=== PATIENT | male | born 1965 | race Caucasian/White ===

== ENCOUNTER 2018-04-26 09:30 | Inpatient (IN) ==
--- NOTE | 2018-04-26 10:14 | ERNOTE ---
Abdominal HPI - Narrative Date of Service: 04/26/18 - General Chief Complaint: Abdominal Pain Time Seen by Provider: 04/26/18 10:14 Source: patient Exam Limitations: no limitations - Immun/Allergies/Home Medications Allergies/Adverse Reactions: Allergies No Known Allergies Allergy (Verified 04/26/18 09:47) Home Medications: HOME MEDICATIONS NK 04/26/18 [Last Taken Unknown] - Pain Score Pain Score #1 Pain Score: 8 Abdominal Pain Onset Location: RUQ, LUQ, epigastric Pain Radiation: no radiation - History of Present Illness Narrative: The patient is a 52 year old male who presents for upper abdominal pain which has been present for 2 days. There are associated symptoms of nausea with vomiting. The patient reports upper abdominal pain, 8/10. There are no alleviating factors. There are aggravating factors of activity. Previous treatments have included: none. The past medical history includes: ETOH abuse. The social history is positive for current tobacco and marijuana use, daily alcohol intake. The patient has had no ill contacts. Patient presents with concern for food poisoning due to possible consumption of raw chicken yesterday. Patient states he began having upper abdominal pain followed by multiple episodes of vomiting. Patient reports normal BM yesterday. Patient states he was unable to keep down fluids but last evening and today has been able to keep down clear liquids without recurrence of vomiting. Patient presents due to persistent pain. Timing: constant, getting worse Activities at Onset: none Associated Symptoms: Present: nausea, vomiting, loss of appetite. Absent: fever/chills Review of Systems - Review of Systems Constitutional: Present: fatigue. Absent: fever EYE: Present: no symptoms reported ENT: Present: no symptoms reported. Absent: ear pain, nasal drainage, sore throat Respiratory: Present: no symptoms reported. Absent: shortness of breath, cough Cardiology: Present: no symptoms reported. Absent: chest pain Gastrointestinal/Abdominal: Present: nausea, vomiting, abdominal pain, eating less, drinking less. Absent: diarrhea Genitourinary: Present: decreased urinary output. Absent: dysuria Musculoskeletal: Present: no symptoms reported. Absent: back pain Skin: Present: no symptoms reported. Absent: rash Neurological: Present: no symptoms reported Endocrine: Present: no symptoms reported Hematologic/Lymphatic: Present: no symptoms reported Psych: Present: no symptoms reported All Other Systems: All systems neg except as marked Medical History (Last Reviewed 04/26/18 @ 12:24 by CONCHITA Frias) No pertinent past medical history Family History: Family History (Last Reviewed 04/26/18 @ 12:24 by CONCHITA Frias) Brother Heart disease Father Heart disease Son Heart disease Social History: Preferred Language Persian Smoking Status Current every day smoker Have you smoked in the past 12 Yes months Alcohol Use heavy Drug Use none No Social History Section defined Physical Exam - Physical Exam General Appearance: Present: wd/wn, alert, moderate distress Head Exam: Present: normal inspection Eye Exam: Normal inspection: bilateral Ears, Nose, Throat: Present: normal ENT inspection, normal pharynx Neck: Present: normal inspection, nontender Respiratory: Present: no respiratory distress, normal breath sounds, no accessory muscle use, lungs clear Cardiovascular/Chest: Present: regular rate, rhythm, no murmur Gastrointestinal/Abdominal: Present: tenderness - RUQ, LUQ, epigastric moderate, abnormal bowel sounds - hyperactive throughout, guarding, hepatomegaly. Absent: distended, mass Neurological Exam: Present: alert, oriented, normal mood/affect Skin Exam: Present: normal color, warm/dry Progress - Date and Time Seen: Date and Time: 04/26/18 12:[address] abd/pelvis due to elevated enzymes with elevated WBC. 04/26/18 14:55 Discussed case to . Referred patient to for admission. Discussed case with , will admit for acute pancreatitis, hyponatremia, intractable abdominal pain and ETOH abuse. Patient states pain after medication improved to 4/10. Discussed CT results with . 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 - Results and Orders Patient's Lab Results:: I have reviewed the patient's lab results. - Vital Signs Patient's Vital Signs:: I have reviewed the patient's vital signs. Vital Signs: Vital Signs 04/26/18 09:44 Temperature 36.7 C Pulse Rate 89 Respiratory Rate 16 Blood Pressure 157/104 H O2 Sat by Pulse Oximetry 100 - X-Ray X-Ray #1 X-Ray: abdomen Interpretation: Reviewed by me X-ray Comments: X-RAY REPORT ~[id number] RAD/Abdomen Flat W/ Upright *~ Exam Date: 04/26/2018 10:23 Ordering Physician: Roxie Magalie ORGANIC PREPARATION TECHNICIAN HISTORY: Abdominal Pain Additional history from technologist: ABD PAIN SINCE 04-25-18/FOOD POISIONING?ATE RAW CHICKEN/VOMITING ALOT NO SURGERIES TECHNIQUE: AP upright and supine views of the abdomen were obtained, total of 4 images. COMPARISONS: None available. FINDINGS: Abdomen Flat W/ Upright *: No subdiaphragmatic free air. No abnormal dilation of large or small bowel. Pelvic calcifications are likely phleboliths. Osseous structures are intact. Degenerative changes of the spine and bilateral hips noted. IMPRESSION: Nonobstructive bowel gas pattern. Electronically signed by Dhruv Pugh M.D.. - CT/Ultrasound CT/Ultrasound Narrative: X-RAY REPORT ~[id number] CT/CT Abdomen/Pelvis W/C *~ Exam Date: 04/26/2018 13:45 Ordering Physician: Roxie Mejias ORGANIC PREPARATION TECHNICIAN HISTORY/INDICATION: elevated enzymes, upper abd pain, hx etoh TECHNIQUE: Contrast enhanced CT images of the abdomen during portal venous phase obtained. Excretory phase images of the abdomen and pelvis were also obtained. Coronal reconstructions were also submitted. Oral contrast material was given. Dose reduction techniques using the adjustment of the mA and/or kV according to patient size and/or use of AEC or iterative reconstruction were used in the acquisition of this exam. COMPARISON: None available. CT Abdomen/Pelvis W/C * ABDOMEN: Lungs: Mild dependent atelectasis present. Liver: Decreased attenuation of liver parenchyma suggestive of fatty liver. No focal mass or intrahepatic ductal dilation. There is a trace amount of ascites seen adjacent to the right hepatic lobe. Gallbladder: The gallbladder appears to be grossly unremarkable other than some areas of hyperattenuation. Could represent sludge versus stones. Pancreas: There is diffuse enlargement of the pancreas, with surrounding inflammatory stranding and confluent edema/fluid. There is no definite signs of fluid collection with peripheral enhancement to suggest abscess. No focal mass, or areas of nonenhancement to suggest pancreatic necrosis. There is no evidence for splenic venous thrombosis. There is no evidence for parenchymal or retroperitoneal gas. Spleen: The spleen is unremarkable. Adrenal glands: Unremarkable without focal finding. Kidneys: Normal appearance without focal mass or hydronephrosis. Aorta: Mild calcified atherosclerotic plaques noted. Largest transaxial diameter of the infrarenal segment is 1.8 cm. Retroperitoneum: No pathologic size lymphadenopathy or mass within the retro peritoneum is seen. Stomach: Unopacified and nondistended stomach grossly unremarkable. Cannot exclude small mucosal lesion or potential gastritis. Clinical correlation is recommended. Small bowel: There is bowel wall thickening of the duodenum which is likely secondary due to adjacent pancreatic inflammation. There is no evidence for bowel obstruction. Colon: The colon appears to be grossly unremarkable. Normal caliber appendix seen, best seen on series 3 image 46-48. Abdominal wall: There is a small fat-containing umbilical hernia. No evidence for intraperitoneal free air. PELVIS: Contrast-filled portions of the urinary bladder demonstrates no focal finding. No definite signs of pelvic lymphadenopathy or masses are noted. There is a trace amount of free fluid in the pelvis. There is no evidence for pelvic abscess. Bones: Osseous structures appear intact without obvious destructive changes. Degenerative changes of the spine and bilateral hips noted. IMPRESSION: 1. CT findings compatible with acute interstitial edematous pancreatitis without evidence for pancreatic necrosis or fluid collection. 2. Sludge versus gallstone suggested. Consider gallbladder ultrasound as c linically needed. 3. Fatty liver with adjacent trace ascites. 4. Additional comments are as above. Electronically signed by Dhruv Pugh M.D.. - Progress/Reassessment Chief Complaint: Abdominal Pain Departure Clinical Impression: Intractable abdominal pain, Hyponatremia, ETOH abuse Acute pancreatitis Qualifiers: Pancreatitis type: unspecified pancreatitis type Acute pancreatitis complication: no infection or necrosis Qualified Code(s): K85.90 - Acute pancreatitis without necrosis or infection, unspecified - Departure Disposition: Still a patient Condition: Fair
[2018-04-26] MEDS ORDERED: ONDANSETRON 4 MG TAB.RAPDIS PO ONE (10:23)
[2018-04-26 10:41] LABS: Hematocrit 52.4 % (42.0-52.0); Hemoglobin 18.4 gm/dL (13.5-18.0); Mean Cell Volume 94.6 fl (78-100); Mean Corpuscular Hemoglobin 33.2 pg (27-31); Mean Corpuscular Hgb Conc 35.1 g/dl (32-36); Mean Platelet Volume 10.7 fl (8-11.3); Neutrophil # 12.9 K/mm3 (1.3-6.0); Neutrophil % 86.5 % (42-75.0); Platelet Count 205 K/mm3 (150-450); Red Blood Count 5.54 M/mm3 (4.7-6.0); Red Cell Distribution Width 14.4 % (11.5-14.0); White Blood Count 14.9 K/mm3 (4.0-10.5)
[2018-04-26 10:48] LABS: Urine Bilirubin 1 mg/dl (NEGATIVE); Urine Blood 25 /ul (NEGATIVE); Urine Ketone 15 mg/dL (NEGATIVE); Urine Nitrite Negative (NEGATIVE); Urine Protein 30 mg/dL (NEGATIVE); Urine Specific Gravity 1.025 SP.GR. (1.005-1.030); Urine Urobilinogen Normal (NORMAL); Urine pH 6.5 pH (5.0-7.0)
[2018-04-26] MEDS ORDERED: MORPHINE SULFATE 4 MG/ML SYRG IV ONE ×2 (10:48→11:49)
[2018-04-26 10:55] LABS: ALT 51 U/L (19-67); AST 28 U/L (0-48); Albumin * 3.9 gm/dl (3.4-5.0); Alkaline Phosphatase * 77 U/L (50-170); Anion Gap 16.5 mmol/L (6.8-13.8); BUN/Creatinine Ratio 15.9 (9.0-21.6); Bilirubin, Total 0.6 mg/dL (0.0-1.1); Blood Urea Nitrogen 13 mg/dL (6-23); CRP 5.4 mg/dL (0.0-0.9); Ca. Corrected For Albumin 9.1 mg/dL (8.4-10.2); Calcium * 9.3 mg/dL (7.9-10.9); Carbon Dioxide 24.2 mmol/L (24-32.6); Chloride 94 mmol/L (97-106); Glucose * 163 mg/dL (70-110); Potassium 3.7 mmol/L (3.4-4.6); Sodium 131 mmol/L (132-142); Total Protein 8.2 gm/dL (6.2-8.2)
[2018-04-26 10:57] LABS: Amylase * 1163 U/L (25-115)
[2018-04-26] MEDS ORDERED: NORMAL SALINE 1,000 ML IV PRN (11:02)
[2018-04-26 11:03] LABS: Urine Appearance Clear (CLEAR); Urine Color Yellow
[2018-04-26 11:04] LABS: Cocaine Ur Negative (NEGATIVE); Urine Bacteria None Seen; Urine Barbiturate Negative (NEGATIVE); Urine Benzodiazepines Negative (NEGATIVE); Urine Opiates Negative (NEGATIVE); Urine PCP Negative (NEGATIVE); Urine RBC 0-5 /hpf (0-5); Urine WBC None Seen /hpf (0-5)
[2018-04-26 11:05] LABS: Urine THC Positive (NEGATIVE)
[2018-04-26 11:28] LABS: Lipase 8780 U/L (73-393)
[2018-04-26] MEDS ORDERED: DIATRIZOATE MEGLUMINE, SODIUM 30 ML BTL PO ONE (11:39)
[2018-04-26] MEDS ORDERED: ONDANSETRON HCL/PF 2 MG/ML VIAL IV PRN (15:44)
[2018-04-26] MEDS ORDERED: LORazepam 2 MG/ML DISP.SYRIN IV SCH (15:45)
[2018-04-26] MEDS ORDERED: THIAMINE HCL 100 MG in NORMAL SALINE 50 ML IV ONE (16:00)
[2018-04-26] MEDS ORDERED: LORazepam 2 MG/ML DISP.SYRIN IV PRN (16:19)
[2018-04-26] MEDS: MORPHINE SULFATE 4 MG/ML SYRG IV PRN ×2 (17:04→21:30)
[2018-04-26] MEDS: FOLIC ACID 1 MG TABLET PO SCH (17:07)
[2018-04-26] MEDS: POTASSIUM CHLORIDE 20 MEQ in NORMAL SALINE 1,000 ML IV SCH (17:42)
--- NOTE | 2018-04-26 18:20 | HP ---
Chief Complaint - Chief Complaint Date of Service: 04/26/18 Time of Service: 18:07 Chief Complaint: Abdominal pain History of Present Illness: This is a 52-year-old man who began to have upper abdominal pain the night before last. Shortly after its onset, he began to vomit. He estimated that he vomited about 30 times. Yesterday the vomiting slowly went away and hasn't had it since, however the abdominal pain is gotten steadily worse, which prompted him to come to the emergency room. There they gave him symptomatic treatment, evaluated him and found that he had acute pancreatitis and possible sludge and/or gallstones in his gallbladder. He was sick enough with abnormal enough labs that he was admitted to the hospital for care. He has never had this before. He drinks at least 8 beers and several shots of liquor every night. He has never had convulsions after stopping alcohol or hallucinations. He does have blackouts and sometimes after heavy drinking he will get tremors. He smokes 1-1/2 packs per day of small cigars. Medical History (Last Reviewed 04/26/18 @ 16:03 by Mindy Reynolds RN) No pertinent past medical history Surgical History: Surgical History (Last Updated 04/26/18 @ 16:03 by Mindy Reynolds RN) No pertinent past surgical history Family History: Family History (Last Updated 04/26/18 @ 18:10 by Abdullahi Lara MD) Brother Heart disease Father Heart disease Son Heart disease Grandfather Alcoholism in family Family/Other Alcoholism in family Social History: Patient Lives/Resources Home Utilized Occupation [employer] work Preferred Language Tuvaluan Do you have any catholic or No cultural preference? Smoking Status Current every day smoker Have you smoked in the past 12 Yes months Alcohol Use heavy Drug Use none No Social History Section defined Review Of Systems (GEN) - Review of Systems Generalized/Overall Review: Present: Chills, Malaise, Diaphoresis EENTM: Present: Other. Absent: Ear Pain Respiratory: Absent: Cough, Shortness of Breath, Orthopnea, Wheezing Cardiac: Absent: Chest Pain, Edema Abdominal: Present: Nausea, Vomiting, Abdominal Pain. 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 Misc: All systems neg except as marked Allergies/Adverse Reactions: Allergies Allergy/AdvReac Type Severity Reaction Status Date / Time No Known Allergies Allergy Verified 04/26/18 16:02 Home Medications: HOME MEDICATIONS L.acidoph,Paracasei, B.lactis [Probiotic] 1 ea PO DAILY 04/26/18 [Last Taken Unknown] Exam - Exam Vital Signs: Vital Signs - Last Taken Temp 36.9 C 04/26/18 16:04 Pulse 96 04/26/18 16:04 Resp 16 04/26/18 16:04 BP 150/87 H 04/26/18 17:03 Pulse Ox 97 04/26/18 16:04 Constitutional: Present: Alert, Oriented x3, Cooperative, Well developed, Well nourished, Mild distress ENT Exam: Present: normal ENT inspection, hearing grossly normal Eye Exam: bilateral eye: normal inspection, PERRL, EOMI Neck: Present: non-tender, supple, normal inspection. Absent: thyromegaly Back Exam: Present: normal inspection, no CVA tenderness, vertebral tenderness - Midline low back Breasts: Present: Exam deferred Respiratory: Present: chest non-tender, lungs clear. Absent: respiratory distress Cardiovascular/Chest: Present: regular rate, rhythm, no edema, no gallop, no J VD, no murmur Peripheral Pulses: carotid (R): 1+, carotid (L): 1+, radial (R): 1+, radial (L): 1+ Abdomen: Present: Normal bowel sounds, soft, nondistended, no rebound tenderness, no hepatospenomegaly, tender - Especially in the epigastrium but over the rest of the upper abdomen also.. Absent: positive Lopez sign /Rectal: Present: Exam deferred Extremity: Present: normal range of motion, non-tender, normal inspection Skin Exam: Present: normal color, warm/dry, no cyanosis Lymphatic: Present: no adenopathy Neurologic: Present: normal mood/affect. Absent: motor weakness Appearance: Present: appropriate appearance, neat, no memory impairment, impaired insight Eye contact: Present: cooperative, good eye contact Thoughts: Present: normal thought pattern, no apparent hallucination Diagnostic Studies: Abnormal Lab Results 04/26/18 04/26/18 04/26/18 Range/Units 10:37 10:37 10:41 WBC 14.9 H (4.0-10.5) K/mm3 Hgb 18.4 H (13.5-18.0) gm/dL Hct 52.4 H (42.0-52.0) % MCH 33.2 H (27-31) pg RDW 14.4 H (11.5-14.0) % Immature Gran % (Auto) 0.50 H (0.001-0.429) % Immature Gran # (Auto) 0.07 H (0.000-0.0310) K/mm3 Neutrophils % 86.5 H (42-75.0) % Lymphocytes % 9.0 L (20-51) % Neutrophils # 12.9 H (1.3-6.0) K/mm3 Lymphocytes # 1.35 L (1.5-3.5) k/mm3 Sodium 131 L (132-142) mmol/L Chloride 94 L (97-106) mmol/L Anion Gap 16.5 H (6.8-13.8) mmol/L Random Glucose 163 H (70-110) mg/dL C-Reactive Prot, Quant 5.4 H (0.0-0.9) mg/dL Amylase 1163 H (25-115) U/L Lipase 8780 H (73-393) U/L Urine Protein 30 H (NEGATIVE) mg/dL Urine Blood 25 H (NEGATIVE) /ul Urine Bilirubin 1 H (NEGATIVE) mg/dl Urine Marijuana (THC) (NEGATIVE) 04/26/18 Range/Units 10:41 WBC (4.0-10.5) K/mm3 Hgb (13.5-18.0) gm/dL Hct (42.0-52.0) % MCH (27-31) pg RDW (11.5-14.0) % Immature Gran % (Auto) (0.001-0.429) % Immature Gran # (Auto) (0.000-0.0310) K/mm3 Neutrophils % (42-75.0) % Lymphocytes % (20-51) % Neutrophils # (1.3-6.0) K/mm3 Lymphocytes # (1.5-3.5) k/mm3 Sodium (132-142) mmol/L Chloride (97-106) mmol/L Anion Gap (6.8-13.8) mmol/L Random Glucose (70-110) mg/dL C-Reactive Prot, Quant (0.0-0.9) mg/dL Amylase (25-115) U/L Lipase (73-393) U/L Urine Protein (NEGATIVE) mg/dL Urine Blood (NEGATIVE) /ul Urine Bilirubin (NEGATIVE) mg/dl Urine Marijuana (THC) Positive H (NEGATIVE) Laboratory Results WBC 14.9 K/mm3 (4.0-10.5) H 04/26/18 10:37 RBC 5.54 M/mm3 (4.7-6.0) 04/26/18 10:37 Hgb 18.4 gm/dL (13.5-18.0) H 04/26/18 10:37 Hct 52.4 % (42.0-52.0) H 04/26/18 10:37 MCV 94.6 fl (78-100) 04/26/18 10:37 MCH 33.2 pg (27-31) H 04/26/18 10:37 MCHC 35.1 g/dl (32-36) 04/26/18 10:37 RDW 14.4 % (11.5-14.0) H 04/26/18 10:37 Plt Count 205 K/mm3 (150-450) 04/26/18 10:37 MPV 10.7 fl (8-11.3) 04/26/18 10:37 Immature Gran % (Auto) 0.50 % (0.001-0.429) H 04/26/18 10:37 Immature Gran # (Auto) 0.07 K/mm3 (0.000-0.0310) H 04/26/18 10:37 Neutrophils % 86.5 % (42-75.0) H 04/26/18 10:37 Lymphocytes % 9.0 % (20-51) L 04/26/18 10:37 Monocytes % 3.8 % (0.0-9) 04/26/18 10:37 Eosinophils % 0.1 % (0.0-3.0) 04/26/18 10:37 Basophils % 0.1 % (0.0-1.0) 04/26/18 10:37 Nucleated RBC % 0.0 k/mm3 (0-1) 04/26/18 10:37 Neutrophils # 12.9 K/mm3 (1.3-6.0) H 04/26/18 10:37 Lymphocytes # 1.35 k/mm3 (1.5-3.5) L 04/26/18 10:37 Monocytes # 0.6 k/mm3 (0.0-1.0) 04/26/18 10:37 Eosinophils # 0.0 k/mm3 (0.0-0.7) 04/26/18 10:37 Absolute Basophils 0.0 k/mm3 (0.0-0.1) 04/26/18 10:37 Sodium 131 mmol/L (132-142) L 04/26/18 10:37 Plasma Sodium 132 mmol/L (130-142) 04/26/18 10:37 Potassium 3.7 mmol/L (3.4-4.6) 04/26/18 10:37 Chloride 94 mmol/L (97-106) L 04/26/18 10:37 Carbon Dioxide 24.2 mmol/L (24-32.6) 04/26/18 10:37 Anion Gap 16.5 mmol/L (6.8-13.8) H 04/26/18 10:37 BUN 13 mg/dL (6-23) 04/26/18 10:37 Creatinine 0.82 mg/dL (0.4-1.4) 04/26/18 10:37 Est GFR (Non-Af Amer) 106 mL/min (60-130) 04/26/18 10:37 BUN/Creatinine Ratio 15.9 (9.0-21.6) 04/26/18 10:37 Random Glucose 163 mg/dL (70-110) H 04/26/18 10:37 Calcium 9.3 mg/dL (7.9-10.9) 04/26/18 10:37 Calcium Adj for Albumin 9.1 mg/dL (8.4-10.2) 04/26/18 10:37 Total Bilirubin 0.6 mg/dL (0.0-1.1) 04/26/18 10:37 AST 28 U/L (0-48) 04/26/18 10:37 ALT 51 U/L (19-67) 04/26/18 10:37 Alkaline Phosphatase 77 U/L (50-170) 04/26/18 10:37 C-Reactive Prot, Quant 5.4 mg/dL (0.0-0.9) H 04/26/18 10:37 Total Protein 8.2 gm/dL (6.2-8.2) 04/26/18 10:37 Albumin 3.9 gm/dl (3.4-5.0) 04/26/18 10:37 Amylase 1163 U/L (25-115) H 04/26/18 10:37 Lipase 8780 U/L (73-393) H 04/26/18 10:37 Urine Color Yellow 04/26/18 10:41 Urine Appearance Clear (CLEAR) 04/26/18 10:41 Urine pH 6.5 pH (5.0-7.0) 04/26/18 10:41 Ur Specific Ramer 1.025 SP.GR. (1.005-1.030) 04/26/18 10:41 Urine Protein 30 mg/dL (NEGATIVE) H 04/26/18 10:41 Urine Glucose (UA) Negative mg/dL (NEGATIVE) 04/26/18 10:41 Urine Ketones 15 mg/dL (NEGATIVE) 04/26/18 10:41 Urine Blood 25 /ul (NEGATIVE) H 04/26/18 10:41 Urine Nitrate Negative (NEGATIVE) 04/26/18 10:41 Urine Bilirubin 1 mg/dl (NEGATIVE) H 04/26/18 10:41 Urine Ictotest Negative (NEGATIVE) 04/26/18 10:41 Prot Sulfosalicylic Acd Negative mg/dL (0) 04/26/18 10:41 Urine Urobilinogen Normal EU/dl (NORMAL) 04/26/18 10:41 Ur Leukocyte Esterase Negative /ul (NEGATIVE) 04/26/18 10:41 Urine RBC 0-5 /hpf (0-5) 04/26/18 10:41 Urine WBC None seen /hpf (0-5) 04/26/18 10:41 Ur Epithelial Cells None seen /hpf (0-5) 04/26/18 10:41 Urine Bacteria None seen (NONE) 04/26/18 10:41 Urine Culture Comments No culture indicated 04/26/18 10:41 Urine Opiates Screen Negative (NEGATIVE) 04/26/18 10:41 Barbiturate Screen Negative (NEGATIVE) 04/26/18 10:41 Ur Phencyclidine Scrn Negative (NEGATIVE) 04/26/18 10:41 Urine Amphetamine Negative (NEGATIVE) 04/26/18 10:41 U Benzodiazepines Scrn Negative (NEGATIVE) 04/26/18 10:41 Urine Cocaine Screen Negative (NEGATIVE) 04/26/18 10:41 Urine Marijuana (THC) Positive (NEGATIVE) H 04/26/18 10:41 Ethyl Alcohol Less than 3.0 mg/dL (0.0-10.0) 04/26/18 10:37 Assessment/Plan - Narrative Narrative: Nothing by mouth except water for IV fluid therapy. Symptomatic medication. Repeat blood work. It is 48 hours since his last drink. As needed lorazepam in case he has a seizure. After discharge she will need a gallbladder ultrasound. His. I estimate he will be here for 3-4 days. - Assessment/Plan (1) Gallbladder anomaly Problem: Acute (2) Acute pancreatitis Problem: Acute Qualifiers: Pancreatitis type: unspecified pancreatitis type Acute pancreatitis compl ication: no infection or necrosis Qualified Code(s): K85.90 - Acute pancreatitis without necrosis or infection, unspecified (3) Intractable abdominal pain Problem: Acute (4) Hyponatremia Problem: Acute (5) ETOH abuse Problem: Chronic
[2018-04-27] MEDS: MORPHINE SULFATE 4 MG/ML SYRG IV PRN ×5 (02:29→20:26)
[2018-04-27] MEDS: POTASSIUM CHLORIDE 20 MEQ in NORMAL SALINE 1,000 ML IV SCH ×2 (03:45→20:15)
[2018-04-27 05:39] LABS: Hematocrit 47.9 % (42.0-52.0); Hemoglobin 16.4 gm/dL (13.5-18.0); Mean Cell Volume 96.4 fl (78-100); Mean Corpuscular Hgb Conc 34.2 g/dl (32-36); Mean Platelet Volume 10.5 fl (8-11.3); Neutrophil # 10.1 K/mm3 (1.3-6.0); Neutrophil % 79.4 % (42-75.0); Platelet Count 155 K/mm3 (150-450); Red Blood Count 4.97 M/mm3 (4.7-6.0); Red Cell Distribution Width 14.6 % (11.5-14.0); White Blood Count 12.7 K/mm3 (4.0-10.5)
[2018-04-27 05:58] LABS: Albumin * 3.2 gm/dl (3.4-5.0); Anion Gap 11.6 mmol/L (6.8-13.8); BUN/Creatinine Ratio 10.3 (9.0-21.6); Bilirubin, Total 0.6 mg/dL (0.0-1.1); Ca. Corrected For Albumin 8.6 mg/dL (8.4-10.2); Calcium * 8.3 mg/dL (7.9-10.9); Carbon Dioxide 28.4 mmol/L (24-32.6); Total Protein 7.1 gm/dL (6.2-8.2)
--- NOTE | 2018-04-27 07:03 | PN ---
Subjective - Date and Time Seen Date: 04/27/18 Time: 06:57 Subjective Narrative: He has minimal nausea today. His mouth and throat are very dry. He's had no fever chills or sweats. Last night his pain was 6 out of 10. He is still using morphine fairly regularly. The morphine works with slight drowsiness. His abdominal pain has improved from yesterday. Objective Objective Narrative: His blood work today is improving. - Review of Systems Generalized/Overall Review: Denies: Weakness, Malaise, Diaphoresis EENTM: Denies: Eye Pain, Blurred Vision Respiratory: Reports: Cough. Denies: Shortness of Breath, Orthopnea, Wheezing Cardiac: Denies: Chest Pain, Edema Abdominal: Reports: Nausea, Abdominal Pain, Other - No bowel movement since admission. This morning he passed gas for the first time since admission.. Denies: Vomiting Genitourinary Symptoms: Denies: Burning, Dysuria Musculoskeletal Complaints: Reports: No Symptoms Reported Neurological: Denies: Headache, Anxiety, Depressed Skin: Denies: Dryness, Lesions, Rash Endocrine: Denies: Intolerance to Cold, Intolerance to Heat Misc: All systems neg except as marked - Vitals Vitals: Last Vital Signs Temp 36.8 C 04/27/18 01:00 Pulse 102 H 04/27/18 01:00 Resp 16 04/27/18 01:00 BP 138/78 04/27/18 01:00 Pulse Ox 96 04/27/18 01:00 - Abnormal Lab Findings Abnormal Lab Findings: Abnormal Lab Results 04/26/18 04/26/18 04/26/18 Range/Units 10:37 10:37 10:41 WBC 14.9 H (4.0-10.5) K/mm3 Hgb 18.4 H (13.5-18.0) gm/dL Hct 52.4 H (42.0-52.0) % MCH 33.2 H (27-31) pg RDW 14.4 H (11.5-14.0) % Immature Gran % (Auto) 0.50 H (0.001-0.429) % Immature Gran # (Auto) 0.07 H (0.000-0.0310) K/mm3 Neutrophils % 86.5 H (42-75.0) % Lymphocytes % 9.0 L (20-51) % Neutrophils # 12.9 H (1.3-6.0) K/mm3 Lymphocytes # 1.35 L (1.5-3.5) k/mm3 Sodium 131 L (132-142) mmol/L Chloride 94 L (97-106) mmol/L Anion Gap 16.5 H (6.8-13.8) mmol/L Random Glucose 163 H (70-110) mg/dL C-Reactive Prot, Quant 5.4 H (0.0-0.9) mg/dL Albumin (3.4-5.0) gm/dl Amylase 1163 H (25-115) U/L Lipase 8780 H (73-393) U/L Urine Protein 30 H (NEGATIVE) mg/dL Urine Blood 25 H (NEGATIVE) /ul Urine Bilirubin 1 H (NEGATIVE) mg/dl Urine Marijuana (THC) (NEGATIVE) 04/26/18 04/27/18 04/27/18 Range/Units 10:41 05:34 05:34 WBC 12.7 H (4.0-10.5) K/mm3 Hgb (13.5-18.0) gm/dL Hct (42.0-52.0) % MCH 33.0 H (27-31) pg RDW 14.6 H (11.5-14.0) % Immature Gran % (Auto) 0.50 H (0.001-0.429) % Immature Gran # (Auto) 0.06 H (0.000-0.0310) K/mm3 Neutrophils % 79.4 H (42-75.0) % Lymphocytes % 12.6 L (20-51) % Neutrophils # 10.1 H (1.3-6.0) K/mm3 Lymphocytes # (1.5-3.5) k/mm3 Sodium (132-142) mmol/L Chloride (97-106) mmol/L Anion Gap (6.8-13.8) mmol/L Random Glucose (70-110) mg/dL C-Reactive Prot, Quant (0.0-0.9) mg/dL Albumin 3.2 L (3.4-5.0) gm/dl Amylase 537 H (25-115) U/L Lipase 1842 H (73-393) U/L Urine Protein (NEGATIVE) mg/dL Urine Blood (NEGATIVE) /ul Urine Bilirubin (NEGATIVE) mg/dl Urine Marijuana (THC) Positive H (NEGATIVE) - Exam Constitutional: Present: Alert, Oriented x3, Cooperative, Well developed, Well nourished, No distress ENT Exam: Present: normal ENT inspection, hearing grossly normal, dry mucous membranes Neck: Present: full range of motion, normal inspection. Absent: lymphadenopathy (R), lymphadenopathy (L), thyromegaly Breasts: Present: Exam deferred Respiratory: Present: lungs clear, no respiratory distress Cardiovascular/Chest: Present: regular rate, rhythm, no chest tenderness, no edema, no gallop, no JVD Abdomen: Present: Normal bowel sounds, soft, tender /Rectal: Present: Exam deferred Extremity: Present: normal range of motion, non-tender, normal inspection, no pedal edema, no calf tenderness Skin Exam: Present: normal color, warm/dry, no cyanosis Lymphatic: Present: no adenopathy Neurologic: Present: normal mood/affect. Absent: abnormal gait Appearance: Present: appropriate appearance, neat, no memory impairment. Absent: appropriate insight Eye contact: Present: cooperative, good eye contact, normal speech Thoughts: Present: normal thought pattern Assessment/Plan Plan Narrative: We will and clear liquids today. We will decrease his IV rate. We will repeat lab work tomorrow. We will add Lovenox for DVT prophylaxis. - Problems/Diagnosis (1) Gallbladder anomaly Problem: Acute (2) Acute pancreatitis Problem: Acute Qualifiers: Pancreatitis type: unspecified pancreatitis type Acute pancreatitis complication: no infection or necrosis Qualified Code(s): K85.90 - Acute pancreatitis without necrosis or infection, unspecified (3) Intractable abdominal pain Problem: Acute (4) Hyponatremia Problem: Resolved (5) ETOH abuse Problem: Chronic
[2018-04-27] MEDS: ENOXAPARIN SODIUM 40 MG/0.4 ML SYRG SC SCH (07:25)
[2018-04-27] MEDS: FOLIC ACID 1 MG TABLET PO SCH (08:02)
[2018-04-27] MEDS: THIAMINE HCL 100 MG TABLET PO SCH (08:03)
[2018-04-28] MEDS: MORPHINE SULFATE 4 MG/ML SYRG IV PRN ×2 (04:56→09:32)
[2018-04-28 05:42] LABS: Hematocrit 47.4 % (42.0-52.0); Hemoglobin 16.1 gm/dL (13.5-18.0); Mean Cell Volume 97.3 fl (78-100); Mean Corpuscular Hemoglobin 33.1 pg (27-31); Mean Platelet Volume 10.7 fl (8-11.3); Neutrophil # 9.5 K/mm3 (1.3-6.0); Neutrophil % 70.1 % (42-75.0); Platelet Count 158 K/mm3 (150-450); Red Blood Count 4.87 M/mm3 (4.7-6.0); Red Cell Distribution Width 14.6 % (11.5-14.0); White Blood Count 13.6 K/mm3 (4.0-10.5)
[2018-04-28 06:10] LABS: Albumin * 2.9 gm/dl (3.4-5.0); Anion Gap 13.4 mmol/L (6.8-13.8); Bilirubin, Total 0.8 mg/dL (0.0-1.1); Calcium * 8.4 mg/dL (7.9-10.9); Carbon Dioxide 25.7 mmol/L (24-32.6); Potassium 4.1 mmol/L (3.4-4.6); Total Protein 7.1 gm/dL (6.2-8.2)
[2018-04-28] MEDS: ENOXAPARIN SODIUM 40 MG/0.4 ML SYRG SC SCH (07:09)
[2018-04-28] MEDS: FOLIC ACID 1 MG TABLET PO SCH (09:25)
[2018-04-28] MEDS: THIAMINE HCL 100 MG TABLET PO SCH (09:25)
[2018-04-28] MEDS ORDERED: ACETAMINOPHEN 325 MG TABLET PO PRN (10:34)
--- NOTE | 2018-04-28 12:27 | PN ---
Subjective - Date and Time Seen Date: 04/28/18 Time: 06:45 Subjective Narrative: He has minimal nausea today. His mouth and throat are much less dry. He's had no fever chills or sweats. Last night his pain was much better. He is using morphine less. The morphine w orks with slight drowsiness. His abdominal pain has improved from yesterday. He is taking oral intake without problems. He is walking in the halls. Objective - Review of Systems Generalized/Overall Review: Reports: Malaise. Denies: Chills, Fever EENTM: Denies: Eye Pain, Blurred Vision Respiratory: Denies: Cough, Shortness of Breath Cardiac: Denies: Chest Pain, Edema Abdominal: Reports: Abdominal Pain. Denies: Nausea, Vomiting, Constipation, Diarrhea Genitourinary Symptoms: Denies: Burning, Urgency Musculoskeletal Complaints: Denies: Joint Pain, Back Pain Neurological: Denies: Headache, Anxiety, Depressed Skin: Denies: Dryness, Lesions, Rash Endocrine: Denies: Intolerance to Cold, Intolerance to Heat Misc: All systems neg except as marked - Vitals Vitals: Last Vital Signs Temp 37 C 04/28/18 10:19 Pulse 82 04/28/18 10:19 Resp 16 04/28/18 10:19 BP 130/68 04/28/18 10:19 Pulse Ox 95 04/28/18 10:19 - Abnormal Lab Findings Abnormal Lab Findings: Abnormal Lab Results 04/28/18 04/28/18 Range/Units 05:25 05:25 WBC 13.6 H (4.0-10.5) K/mm3 MCH 33.1 H (27-31) pg RDW 14.6 H (11.5-14.0) % Immature Gran # (Auto) 0.05 H (0.000-0.0310) K/mm3 Lymphocytes % 18.1 L (20-51) % Monocytes % 10.5 H (0.0-9) % Neutrophils # 9.5 H (1.3-6.0) K/mm3 Monocytes # 1.4 H (0.0-1.0) k/mm3 Est GFR (Non-Af Amer) 133 H (60-130) mL/min Albumin 2.9 L (3.4-5.0) gm/dl - Exam Constitutional: Present: Alert, Oriented x3, Cooperative, Well developed, Well nourished ENT Exam: Present: normal ENT inspection, hearing grossly normal Neck: Present: non-tender, full range of motion, normal inspection. Absent: lymphadenopathy (R), lymphadenopathy (L), thyromegaly Breasts: Present: Exam deferred Respiratory: Present: lungs clear, no respiratory distress Cardiovascular/Chest: Present: normal peripheral pulses, regular rate, rhythm, no edema, no gallop, no JVD, no murmur Abdomen: Present: Normal bowel sounds, soft, nondistended, no rebound tenderness, no hepatospenomegaly, tender - Upper abdomen. Less than yesterday. /Rectal: Present: Exam deferred Extremity: Present: normal range of motion, no pedal edema, no calf tenderness Skin Exam: Present: normal color, warm/dry, no cyanosis Lymphatic: Present: no adenopathy Neurologic: Present: normal mood/affect. Absent: motor weakness Appearance: Present: appropriate appearance, appropriate insight, neat Eye contact: Present: cooperative, good eye contact, normal speech Thoughts: Present: normal thought pattern Assessment/Plan Plan Narrative: He is still improving, has no nausea or vomiting and is walking in the halls. His amylase and lipase have come down to normal. His white blood count is stable. His vitals are stable. He still has pain but it has improved. We will reevaluate him this evening. He is a candidate for either discharge this evening or tomorrow morning. - Problems/Diagnosis (1) Gallbladder anomaly Problem: Acute (2) Acute pancreatitis Problem: Acute Qualifiers: Pancreatitis type: unspecified pancreatitis type Acute pancreatitis complication: no infection or necrosis Qualified Code(s): K85.90 - Acute pancreatitis without necrosis or infection, unspecified (3) Intractable abdominal pain Problem: Acute (4) Hyponatremia Problem: Resolved (5) ETOH abuse Problem: Chronic
[2018-04-28] MEDS: POTASSIUM CHLORIDE 20 MEQ in NORMAL SALINE 1,000 ML IV SCH (17:28)
--- NOTE | 2018-04-28 17:47 | DS ---
(1) Acute pancreatitis Problem: Acute Qualifiers: Pancreatitis type: unspecified pancreatitis type Acute pancreatitis complication: no infection or necrosis Qualified Code(s): K85.90 - Acute pancreatitis without necrosis or infection, unspecified (2) ETOH abuse Problem: Chronic (3) Gallbladder anomaly Problem: Acute (4) Intractable abdominal pain Problem: Resolved (5) Hyponatremia Problem: Resolved Description of Stay: He was initially treated with bowel rest, fluids and as needed pain and nausea medication. On clinical exam and by laboratory evaluation he steadily improved. This morning his amylase and lipase were back to normal. All through the day he's had very little pain in his abdomen and no nausea whatsoever. He is eating well and he is walking in the halls without difficulty. When I see him back in the office in about one week, at that time we'll arrange for his gallbladder ultrasound. His prognosis is excellent providing he completely avoid alcohol. Procedures Performed: none Results and Findings: Lab Pending Results 04/26/18 10:37: WBC 14.9 H, RBC 5.54, Hgb 18.4 H, Hct 52.4 H, MCV 94.6, MCH 33.2 H, MCHC 35.1, RDW 14.4 H, Plt Count 205, MPV 10.7, Immature Gran % (Auto) 0.50 H, Immature Gran # (Auto) 0.07 H, Neutrophils % 86.5 H, Lymphocytes % 9.0 L, Monocytes % 3.8, Eosinophils % 0.1, Basophils % 0.1, Nucleated RBC % 0.0, Neutrophils # 12.9 H, Lymphocytes # 1.35 L, Monocytes # 0.6, Eosinophils # 0.0, Absolute Basophils 0.0 04/26/18 10:37: Sodium 131 L, Plasma Sodium 132, Potassium 3.7, Chloride 94 L, Carbon Dioxide 24.2, Anion Gap 16.5 H, BUN 13, Creatinine 0.82, Est GFR (Non-Af Amer) 106, BUN/Creatinine Ratio 15.9, Random Glucose 163 H, Calcium 9.3, Calcium Adj for Albumin 9.1, Total Bilirubin 0.6, AST 28, ALT 51, Alkaline Phosphatase 77, C-Reactive Prot, Quant 5.4 H, Total Protein 8.2, Albumin 3.9, Amylase 1163 H, Lipase 8780 H, Ethyl Alcohol Less than 3.0 04/26/18 10:41: Urine Color Yellow, Urine Appearance Clear, Urine pH 6.5, Ur Specific [place] 1.025, Urine Protein 30 H, Urine Glucose (UA) Negative, Urine Ketones 15, Urine Blood 25 H, Urine Nitrate Negative, Urine Bilirubin 1 H, Urine Ictotest Negative, Prot Sulfosalicylic Acd Negative, Urine Urobilinogen Normal, Ur Leukocyte Esterase Negative, Urine RBC 0-5, Urine WBC None seen, Ur Epithelial Cells None seen, Urine Bacteria None seen, Urine Culture Comments No culture indicated 04/26/18 10:41: Urine Opiates Screen Negative, Barbiturate Screen Negative, Ur Phencyclidine Scrn Negative, Urine Amphetamine Negative, U Benzodiazepines Scrn Negative, Urine Cocaine Screen Negative, Urine Marijuana (THC) Positive H 04/27/18 05:34: WBC 12.7 H, RBC 4.97, Hgb 16.4, Hct 47.9, MCV 96.4, MCH 33.0 H, MCHC 34.2, RDW 14.6 H, Plt Count 155, MPV 10.5, Immature Gran % (Auto) 0.50 H, Immature Gran # (Auto) 0.06 H, Neutrophils % 79.4 H, Lymphocytes % 12.6 L, Monocytes % 7.2, Eosinophils % 0.1, Basophils % 0.2, Nucleated RBC % 0.0, Neutrophils # 10.1 H, Lymphocytes # 1.60, Monocytes # 0.9, Eosinophils # 0.0, Absolute Basophils 0.0 04/27/18 05:34: Sodium 136, Plasma Sodium 136, Potassium 4.0, Chloride 100, Carbon Dioxide 28.4, Anion Gap 11.6, BUN 8, Creatinine 0.78, Est GFR (Non-Af Amer) 112, BUN/Creatinine Ratio 10.3, Random Glucose 95 D, Calcium 8.3, Calcium Adj for Albumin 8.6, Total Bilirubin 0.6, AST 23, ALT 36, Alkaline Phosphatase 60, Total Protein 7.1, Albumin 3.2 L, Amylase 537 H, Lipase 1842 H 04/28/18 05:25: WBC 13.6 H, RBC 4.87, Hgb 16.1, Hct 47.4, MCV 97.3, MCH 33.1 H, MCHC 34.0, RDW 14.6 H, Plt Count 158, MPV 10.7, Immature Gran % (Auto) 0.40, Immature Gran # (Auto) 0.05 H, Neutrophils % 70.1, Lymphocytes % 18.1 L, Monocytes % 10.5 H, Eosinophils % 0.7, Basophils % 0.2, Nucleated RBC % 0.0, Neutrophils # 9.5 H, Lymphocytes # 2.45, Monocytes # 1.4 H, Eosinophils # 0.1, Absolute Basophils 0.0 04/28/18 05:25: Sodium 135, Plasma Sodium 135, Potassium 4.1, Chloride 100, Carbon Dioxide 25.7, Anion Gap 13.4, BUN 6, Creatinine 0.67, Est GFR (Non-Af Amer) 133 H, BUN/Creatinine Ratio 9.0, Random Glucose 89, Calcium 8.4, Calcium Adj for Albumin 9.0, Total Bilirubin 0.8, AST 17, ALT 25, Alkaline Phosphatase 61, Total Protein 7.1, Albumin 2.9 L, Amylase 100, Lipase 243 Discharge Location: Home Disposition: Home self-care Condition: Good Discharge Activity: Activity as tolerated Discharge Diet: Low fat/chol Referrals: Sunshine Lobo MD [Primary Care Provider] - Additional Patient Instructions (free text): Return to my office in one week for reevaluation. At that time we will arrange her gallbladder ultrasound. Please call if you have problems or questions before you see me in one week. Completely totally and absolutely avoid all alcohol. You may choose to use Tylenol as needed for pain. Complete Home Medications List: Complete Home Medication List: Acetaminophen [Tylenol] 650 mg PO Q6H PRN tab 04/28/18
[2018-04-28 18:31] VITALS: BP 135/79
== END 2018-04-28 18:38 | disposition home or self-care (01) | DRG 439 ==
LOC: ER 09:30 → MS 14:39
PROVIDERS: ADMIT Family Medicine; ATTEND Allergy & Immunology
CPT/HCPCS: 36415; 74019; 74020; 74177; 80053; 80307; 80320; 81001; 82150; 83690; 85025; 86140; 96361; 96374; 96376; 99285; G0481; Q9967